=== PATIENT | female | born 1980 | race Caucasian/White ===

== ENCOUNTER 2019-02-04 14:31 | Emergency (ER) | payer SELFPAY ==
[~2019-02-04] VITALS: Ht 154.9 cm; Wt 88.6 kg
[2019-02-04 14:41] VITALS: BP 145/84; TEMP 98.8
[2019-02-04] MEDS ORDERED: GLUCOPHAGE500 MG/TAB PO (14:46)
[2019-02-04] MEDS ORDERED: JANUVIA25 MG PO (14:46)
[2019-02-04 15:45] LABS: BASO # 0.1 (0.0-0.2); BASO % 0.7 % (0.0-2.0); EOS # 0.3 (0.0-0.7); EOS % 2.7 % (0-4.0); GRAN # 7.7 (1.4-6.5); GRAN % 65.1 % (42.2-75.2); HEMATOCRIT 44.3 % (37.0-47.0); HEMOGLOBIN 14.4 g/dl (12.5-16.0); LYMPH # 3.2 (1.2-3.4); LYMPH % 26.8 % (20.0-51.0); MEAN CELL VOLUME 86 fl (80.0-100.0); MEAN CORPUSCULAR HEMOGLOBIN 28 pg (27.0-31.0); MEAN CORPUSCULAR HGB CONC 33 g/dl (33.0-37.0); MEAN PLATELET VOLUME 9.4 fl (7.4-10.4); MONO # 0.5 (0.1-0.6); MONO % 4.4 % (1.7-9.3); PLATELET COUNT 304 K/mm3 (130-400); RED BLOOD COUNT 5.17 M/mm3 (4.10-5.30); REDCELL DISTRIBUTION WIDTH-CV 13.2 % (11.5-14.5)
[2019-02-04] MEDS ORDERED: PHENERGAN 25 TA25 MG PO (15:56)
[2019-02-04 16:05] LABS: ALBUMIN 4.3 gm/dL (3.5-5.0); BILIRUBIN,TOTAL 0.2 mg/dL (0.0-1.0); CALCIUM 9.4 mg/dL (8.4-10.2); CREATININE, serum 0.59 (0.52-1.25); POTASSIUM 4.3 mmol/L (3.4-5.0); TOTAL PROTEIN 7.7 gm/dL (6.4-8.2)
[2019-02-04 16:40] VITALS: PULSE 67
== END 2019-02-04 16:40 | disposition home or self-care (01) ==
LOC: COL.ER 14:31
PROVIDERS: Emergency Medicine
DX: R10.84 Generalized abdominal pain (principal); Z79.84 Long term (current) use of oral hypoglycemic drugs; Z98.51 Tubal ligation status